=== PATIENT | male | born 1950 | race Caucasian/White ===

== ENCOUNTER 2017-03-13 06:26 | Day surgery (SDC) | payer MEDICARE, BC ==
[2017-03-13] MEDS ORDERED: NEOSTIGMINE 10 MG/10 ML VIAL (J2710) (06:27)
[2017-03-13] MEDS ORDERED: LIDOCAINE 1% MDV 20ML VIAL SQ (07:00)
[2017-03-13] MEDS: LR 1,000 ML IV (07:04)
[2017-03-13] MEDS: CETACAINE SPRAY 5GM As Ordered (07:59)
[2017-03-13] MEDS ORDERED: PROPOFOL 200 MG/20 ML VIAL As Ordered (08:12)
[2017-03-13] MEDS ORDERED: LIDOCAINE 2% INJ 100 MG/5 ML SDV (FOR ANES.) As Ordered (08:12)
[2017-03-13] MEDS ORDERED: dexameTHASONE 4 MG/ML 1ML VIAL (J1100) As Ordered (08:12)
[2017-03-13] MEDS ORDERED: GLYCOPYRROLATE INJ 0.2 MG/ML 2 ML VIAL As Ordered (08:12)
[2017-03-13] MEDS ORDERED: ROCURONIUM BROMIDE 50 MG/5 ML VIAL As Ordered (08:12)
[2017-03-13] MEDS ORDERED: ONDANSETRON 4MG/2ML VIAL (J2405) As Ordered (08:12)
[2017-03-13] MEDS ORDERED: MIDAZOLAM INJ 2 MG/2 ML VIAL (J2250) As Ordered ×2 (08:12→08:40)
[2017-03-13] MEDS ORDERED: NEOSTIGMINE 10 MG/10 ML VIAL (J2710) As Ordered (08:12)
[2017-03-13] MEDS ORDERED: fentaNYL 100 MCG/2 ML INJECTION (J3010) As Ordered ×2 (08:12→08:40)
[2017-03-13] MEDS ORDERED: ETOMIDATE INJ 20MG/10ML VIAL As Ordered (08:12)
[2017-03-13] MEDS ORDERED: PHENYLephrine HCL 500 MCG/5 ML (100MCG/ML) SYRINGE (J2370) As Ordered (08:12)
[2017-03-13] MEDS ORDERED: ePHEDrine INJ 50 MG/ML VIAL As Ordered (08:33)
[2017-03-13] MEDS: EPINEPHrine 1MG/10ML SYRINGE 1.5IN As Ordered (09:02)
[2017-03-13] MEDS: LIDOCAINE 1% MDV 20ML VIAL As Ordered (09:03)
[2017-03-13] MEDS ORDERED: LR 1,000 ML IV (09:15)
[2017-03-13] MEDS ORDERED: fentaNYL 100 MCG/2 ML INJECTION (J3010) IV (09:15)
[2017-03-13] MEDS ORDERED: ONDANSETRON 4MG/2ML VIAL (J2405) IV (09:15)
== END 2017-03-13 10:36 | disposition home or self-care (01) ==
LOC: M SDC 06:26
DX: R91.8 Other nonspecific abnormal finding of lung field (principal); I10 Essential (primary) hypertension; K57.32 Diverticulitis of large intestine without perforation or abscess without bleeding; K21.9 Gastro-esophageal reflux disease without esophagitis; M06.9 Rheumatoid arthritis, unspecified; L40.9 Psoriasis, unspecified; J44.9 Chronic obstructive pulmonary disease, unspecified; E55.9 Vitamin D deficiency, unspecified; R06.02 Shortness of breath; Z88.1 Allergy status to other antibiotic agents; Z79.899 Other long term (current) drug therapy; Z86.19 Personal history of other infectious and parasitic diseases; Z86.79 Personal history of other diseases of the circulatory system; Z99.89 Dependence on other enabling machines and devices; Z87.891 Personal history of nicotine dependence
CPT/HCPCS: 31623

== ENCOUNTER 2020-01-27 07:24 | Day surgery (SDC) | payer MEDICARE, BC ==
[~2020-01-27] VITALS: Ht 180.3 cm; Wt 99.3 kg
[~2020-01-27 07:24] MED LIST: ADV500INH INH; ALBU83IN INH; ALBUTEROL SULFATE 2.5 MG/0.5 ML INH NEB SOLN INH ONE; ASPI81TA26 PO; AVAP150T31 PO; CARD120C3 PO; D31000TA2 PO; DALI1TAB2 PO; DOXY150C PO; LIDOCAINE 4% INJ 5ML AMP INH ONE; LORA-243 PO; LR 1,000 ML IV ONE; NIFE30TA50 PO; OMEG100011 PO; OMEP-358 PO; PANT40TA29 PO; PRED20TA PO; PROAAER10 INH; RA K500C PO; SPIR12.9 INH; THERTAB52 PO; TREL1AER INH; VITA200015 PO; VITA500C24 PO; VITMTA PO; [UNRECOGNIZED DRUG - OTHER]
[2020-01-27] MEDS ORDERED: EPINEPHrine 1MG/10ML SYRINGE 1.5IN As Ordered ONE (08:51)
[2020-01-27] MEDS ORDERED: LIDOCAINE 1% SDV 30ML VIAL As Ordered ONE (08:51)
[2020-01-27] MEDS ORDERED: CETACAINE SPRAY 5GM As Ordered ONE (08:51)
[2020-01-27] MEDS ORDERED: THROMBIN SOLN 5,000 UNITS VIAL As Ordered ONE (08:51)
[2020-01-27] MEDS ORDERED: LIDOCAINE VISCOUS 2% SOLN 15ML UDC As Ordered ONE (08:51)
[2020-01-27] MEDS ORDERED: MIDAZOLAM INJ 2MG/2ML VIAL (J2250 PER 1MG) As Ordered ONE (08:54)
[2020-01-27] MEDS ORDERED: LIDOCAINE 2% 100MG/5ML SDV (FOR ANES.) As Ordered ONE (08:54)
[2020-01-27] MEDS ORDERED: ROCURONIUM BROMIDE 50 MG/5 ML VIAL As Ordered ONE (08:54)
[2020-01-27] MEDS ORDERED: dexameTHASONE 4 MG/ML 1ML VIAL (J1100 PER 1MG) As Ordered ONE (08:54)
[2020-01-27] MEDS ORDERED: propofoL 200 MG/20 ML VIAL As Ordered ONE (08:54)
[2020-01-27] MEDS ORDERED: ONDANSETRON 4MG/2ML VIAL As Ordered ONE (08:54)
[2020-01-27] MEDS ORDERED: fentaNYL 100 MCG/2 ML INJECTION (J3010) As Ordered ONE (08:54)
[2020-01-27] MEDS ORDERED: PHENYLephrine HCL 500 MCG/5 ML (100MCG/ML) SYRINGE (J2370) As Ordered ONE (09:40)
[2020-01-27] MEDS ORDERED: SUGAMMADEX SODIUM 500 MG/5 ML VIAL (BRIDION) As Ordered ONE (09:50)
--- NOTE | 2020-01-27 10:35 | REP ---
INDICATION: R/O PNEMO COMPARISON: 12/04/2018 TECHNIQUE: Portable AP view of the chest FINDINGS: The mediastinum and cardiac silhouette are stable and within normal limits for portable technique. Lung law demonstrate chronic changes. There is a small surgical clip at the right suprahilar region unchanged in position. No acute consolidation, effusion, or pneumothorax identified. IMPRESSION: No acute cardiopulmonary process appreciated. No pneumothorax appreciated. <Electronically signed by Chato Gutierrez > 01/27/20 [id number]
--- NOTE | 2020-01-27 10:37 | RO ---
OPERATIVE NOTE DATE OF OPERATION: 01/27/2020 PREOPERATIVE DIAGNOSIS: Abnormal chest CT with abnormal right low precarinal and pretracheal adenopathy. POSTOPERATIVE DIAGNOSIS: Abnormal chest CT with abnormal right low precarinal-pretracheal adenopathy. FINDINGS: Large low pretracheal lesion on ultrasound. PROCEDURE: Bronchoscopy with endobronchial ultrasound. PROCEDURALIST: Sathya Carrera D.O. ANESTHESIA: General. Please refer to their records for details. ESTIMATED BLOOD LOSS: Less than 5 mL. PROJECT ADMIN: None. SPECIMENS OBTAINED: 1. Left upper lobe bronchoalveolar lavage (BAL). 2. Right 4R low pretracheal node fine needle aspiration (FNA). DESCRIPTION OF PROCEDURE: After informed consent was reviewed with the patient in the preoperative area, he was brought back to OR #1. Anesthesia was initiated with a 3.5 endotracheal tube. The case was then handed over to me. A time-out was performed with two patient identifiers, identifying correct site and correct procedure. Cetacaine spray was used to anesthetize the airway along with the provided lubrication. The 1T190 bronchoscope was then inserted into the endotracheal tube. The malcolm was sharp. The trachea was midline. Right and left mainstem bronchi were normal. RB1 through 3 were all extrinsically compressed, but patent airways without endobronchial lesions. A picture of this was taken. RB4 through 10 was without endobronchial lesion. Left mainstem was normal without endobronchial lesion. LB1 through 10 had significant amounts of copious frothy mucous. After initially clearing this mucous, I then did a BAL of the left upper lobe. There were no endobronchial lesions LB1 through 10. I then removed the 1T190 bronchoscope and inserted the endobronchial ultrasound. I viewed the low 4R area. There was a large lesion measuring just over 1 cm. I took fine needle aspiration (FNA) samples under ultrasound guidance. After adequate sampling and abnormal cells suggested onsite cytology. The endobronchial ultrasound was removed. The 1T190 bronchoscope was reinserted to ensure hemostasis. All airways were suctioned. Hemostasis was ensured and the bronchoscope was removed. Postprocedure chest x-ray is pending. No observed complications up until this point in time.
[2020-01-27] MEDS ORDERED: oxyCODONE 5MG TAB As Ordered ONE (10:44)
[2020-01-27] MEDS ORDERED: fentaNYL 100 MCG/2 ML INJECTION (J3010) IV PRN (10:45)
[2020-01-27] MEDS ORDERED: METOCLOPRAMIDE INJ 10MG/2ML VIAL (J2765 PER 1) IV PRN (10:45)
[2020-01-27] MEDS ORDERED: LR 1,000 ML IV SCH (10:45)
[2020-01-27] MEDS ORDERED: MEPERIDINE INJ 25 MG/ML VIAL (J2175) IV PRN (10:45)
[2020-01-27] MEDS ORDERED: ONDANSETRON 4MG/2ML VIAL IV PRN (10:45)
[2020-01-27] MEDS ORDERED: oxyCODONE 5MG TAB PO PRN (10:45)
[2020-01-27 11:30] VITALS: BP 136/68
== END 2020-01-27 11:32 | disposition home or self-care (01) ==
LOC: M SDC 07:24
PROVIDERS: ATTEND Internal Medicine Pulmonary Disease
DX: R91.8 Other nonspecific abnormal finding of lung field (principal); C77.1 Secondary and unspecified malignant neoplasm of intrathoracic lymph nodes; C34.11 Malignant neoplasm of upper lobe, right bronchus or lung; J44.9 Chronic obstructive pulmonary disease, unspecified; I10 Essential (primary) hypertension; K21.9 Gastro-esophageal reflux disease without esophagitis; L40.9 Psoriasis, unspecified; E55.9 Vitamin D deficiency, unspecified; I49.9 Cardiac arrhythmia, unspecified; M06.4 Inflammatory polyarthropathy; M10.9 Gout, unspecified; R06.83 Snoring; R09.02 Hypoxemia; Z79.82 Long term (current) use of aspirin; Z79.899 Other long term (current) drug therapy; Z87.891 Personal history of nicotine dependence; Z88.1 Allergy status to other antibiotic agents; Z91.09 Other allergy status, other than to drugs and biological substances; Z92.3 Personal history of irradiation
CPT/HCPCS: 31624; 31652; 71045; 87070; 87077; 87102; 87186; 87205; 88173; 88305; 88341; 88342; J1100; J2250; J2370; J2405; J3010

== ENCOUNTER → 2020-12-02 | Outpatient (REF) | payer MEDICARE, BC ==
[~2020-12-02] MED LIST changes: -ALBUTEROL SULFATE 2.5 MG/0.5 ML INH NEB SOLN INH ONE; -LIDOCAINE 4% INJ 5ML AMP INH ONE; -LR 1,000 ML IV ONE
== END ==
LOC: M SFHCPLAZ 13:07
PROVIDERS: ATTEND Internal Medicine Infectious Disease
DX: Z87.01 Personal history of pneumonia (recurrent) (principal); Z23 Encounter for immunization
CPT/HCPCS: 87116; 87206; 90682; G0008; G0463

== ENCOUNTER → 2022-04-13 | Outpatient (REF) | payer MEDICARE, BC ==
[~2022-04-13] MED LIST changes: +ALBU2.5V10 INH; -ALBU83IN INH; -D31000TA2 PO; -DOXY150C PO; +DOXY150C3 PO; +VITA100093 PO
== END ==
LOC: M LAB REF 17:06
PROVIDERS: ATTEND Internal Medicine Pulmonary Disease
DX: J47.1 Bronchiectasis with (acute) exacerbation (principal)